=== PATIENT | female | born 1960 | race Caucasian/White ===

== ENCOUNTER 2016-12-14 21:21 | Inpatient (IN) | payer OTHER ==
[~2016-12-14] VITALS: Ht 157.5 cm; Wt 81.5 kg
--- NOTE | ~2016-12-14 | EKG ---
PATIENT: HALEIGH US UNIT #: [id number] Ventricular Rate: 86 BPM Atrial Rate: 86 BPM P-R Interval: 132 ms QRS Duration: 80 ms Q-T Interval: 386 ms QTC Calculation(Bezet): 461 ms P [place]: 39 degrees Calculated R [place]: 46 degrees Calculated T [place]: 30 degrees Diagnosis Line: Normal sinus rhythm Diagnosis Line: Low voltage QRS Diagnosis Line: Prolonged QT Diagnosis Line: Abnormal ECG Diagnosis Line: No previous ECGs available Diagnosis Line: Confirmed by THIEN VALENCIA MD ([id number]) on Diagnosis Line: 12/20/2016 10:54:02 PM INTERPRETING MD: SAROJ
--- NOTE | ~2016-12-14 | US77 ---
[facility] A Service of [facility] & [facility] RADIOLOGY TEXT RESULTS PATIENT: HALEIGH US LOCATION: [place] [address] : [birth year] UNIT #: [id number] AGE: [address]: Mikala Gee MD SEX: F ORDER DR: [id number] [facility] [address] [place], [place] [address] [id number] I MR#: [id number] Acc #: [id number] NAME: HALEIGH US : 1960 SEX: F STUDY DATE/TIME: 12/15/2016 16:34 UNIT: [facility] ROOM: [facility] STUDY DESCRIPTION: US Kidney Bilateral Complete Attending Physician: Mikala Gee M.D. Ordering Physician: Mikala Gee M.D. MEDICAL IMAGING REPORT This report is preliminary unless electronic signature is present EXAM Renal ultrasound INDICATIONS Acute renal insufficiency. eGFR 16.3. COMPARISON CT of the pelvis 12/14/2016. FINDINGS The right kidney measures 11.2 cm. The left kidney measures 12.3 cm. There is mild renal cortical thinning. No hydronephrosis. The bladder is decompressed and poorly evaluated. IMPRESSION Mild renal cortical atrophy. No hydronephrosis. Dictated by... Jan Rowell M.D. THIS IS AN ELECTRONICALLY VERIFIED REPORT Jan Rowell M.D. at 12/16/2016 8:47 AM RPC/pepe TD: 12/15/2016 21:41 JOB #: [id number] MEDICAL IMAGING REPORT Page 1 of 1 COPY
--- NOTE | ~2016-12-14 | CT4 ---
[facility] A Service of [facility] & [facility] RADIOLOGY TEXT RESULTS PATIENT: HALEIGH US LOCATION: [facility] [id number] : [birth year] UNIT #: [id number] AGE: [address]: Mikala Gee MD SEX: F ORDER DR: [id number] [place] [id number] I MR#: [id number] Acc #: [id number] NAME: HALEIGH US : 1960 SEX: F STUDY DATE/TIME: 12/14/2016 23:29 UNIT: SEDOF ROOM: [id number] STUDY DESCRIPTION: CT Abd and Pelv Wo Cont Attending Physician: Hawa Malcolm M.D. Ordering Physician: Anibal Bey M.D. Primary Care Physician: Primary Care Physician No MEDICAL IMAGING REPORT This report is preliminary unless electronic signature is present. EXAM CT abdomen and pelvis 12/14 23:29 INDICATION Patient unable to urinate with bloating of the abdomen and dizziness since last night. There is associated abdominal pain. TECHNIQUE Axial noncontrast images were obtained through the abdomen and pelvis. Multiplanar reformats were obtained. No comparison. This CT examination was performed with one or more of the following radiation dose reduction techniques: automatic exposure control, adjustment of mA and/or kV according to patient size, and iterative reconstruction. FINDINGS ABDOMEN: There is some mild atelectasis in the lung bases. Gallbladder is unremarkable. No renal or ureteral stones are seen. There is no hydronephrosis. The unenhanced solid organs are normal. No free fluid is seen. The stomach is distended with fluid and gas. Unopacified GI tract is otherwise normal. PELVIS: The appendix is normal. The remainder of the unopacified GI tract is normal as well. Uterus is surgically absent. No free fluid. There are no lower ureteral stones. Urinary bladder is completely decompressed by a Bedoya catheter. There is degenerative disease in the lumbar spine, most pronounced at L4-5. IMPRESSION 1. No renal or ureteral stones. No hydronephrosis. Urinary bladder completely decompressed by a Bedoya. 2. The stomach is distended with fluid and gas. The rest of the GI tract, including the appendix, is normal. [facility]. [facility] A Service of [facility] RADIOLOGY TEXT RESULTS PATIENT: HALEIGH US LOCATION: [facility] [id number] : [birth year] UNIT #: [id number] AGE: [address]: Mikala Gee MD SEX: F ORDER DR: 3. Hysterectomy. Dictated by... Berny Fry Jr., M.D. THIS IS AN ELECTRONICALLY VERIFIED REPORT Berny Fry Jr., M.D. at 12/16/2016 4:21 AM ANITA/burak TD: 12/15/2016 06:19 JOB #: [id number] MEDICAL IMAGING REPORT Page 1 of 1
--- NOTE | ~2016-12-14 | HP ---
Unit #: [id number] #: [id number] Patient: HALEIGH US [id number] [address] [place], [place] [address] [id number] I MR#: [id number] NAME: HALEIGH US ROOM: [facility] Age: 56 Sex: F Admission Date: 12/15/2016 : 1960 Attending Physician: Hawa Malcolm M.D. Primary Care Physician: No Primary Care Physician HISTORY AND PHYSICAL CHIEF COMPLAINT Hypotension with acute kidney injury. HISTORY This 56-year-old female with hypertension was transferred from [facility] emergency department for hypotension and acute kidney injury. Patient states that she has been experiencing some left flank discomfort for about six months. Recently began to experience decreased urinary output with difficulty voiding. Has not voided for the past 1 1/2 days. Yesterday, also experienced lightheadedness, abdominal bloating. Did experience diarrhea several days ago and recently poor p.o. intake. She presented to [facility] emergency department late last evening with a low-grade temperature of 99.4, initial blood pressure of 75/52 with a heart rate of 97. Patient was cultured. A Bedoya catheter was placed and she had 200 mL of urine in her bladder. She was bolused with 2 liters of saline with improvement of her blood pressure. However, en route to this facility, she became hypotensive again and, therefore, was sent to the ICU. She currently is receiving further IV fluids with improvement of her blood pressure. She denies infectious symptoms with the above. Does take Zestoretic 10/12.5 mg daily. Denies recent use of nonsteroidal anti-inflammatory drugs. No previous history of kidney disease. Although she denies illicit drug use, urine tox screen is positive for amphetamines and opiates. She is prescribed Xanax. On CT scan, she had a somewhat distended stomach with fluid and gas. The rest of her CT scan including her kidneys looked to be normal. Her urinalysis is negative and her chest x-ray shows mild cardiomegaly only. PAST MEDICAL HISTORY 1. Hypertension. 2. Anxiety and depression. 3. Admission 05/2014 from community-acquired pneumonia. She was seen in consultation by Dr. Papi Rodriguez. 4. Left total knee replacement. 5. Back surgery. 6. Ear surgery. 7. BTL. 8. Total abdominal hysterectomy. ALLERGIES To Nubain and most nonsteroidal anti-inflammatory drugs including aspirin. HOME MEDICATIONS 1. Xanax 1 mg q.i.d. Unit #: [id number] #: [id number] Patient: HALEIGH US 2. Zestoretic 10/12.5 mg daily. 3. PROzac 20 mg daily. 4. Zyrtec 5 mg daily. 5. LaMICtal recently added 100 mg q.a.m. FAMILY HISTORY Diabetes mellitus, hypertension, leukemia, and melanoma. SOCIAL HISTORY The patient lives with her boyfriend and his father. She smokes about one pack per week of tobacco, seldom drinks alcohol. Denies illicit drug use. REVIEW OF SYSTEMS Notable for difficulty voiding with decreased urinary output, abdominal bloating, left flank discomfort, anxiety, depression, hypertension, and abovementioned surgeries. All other systems were reviewed and are otherwise negative. PHYSICAL EXAMINATION GENERAL APPEARANCE: Pleasant, moderately obese, 56-year-old female currently in no acute distress. VITAL SIGNS: Temperature 99.4; pulse 97; respirations 20; initial blood pressure 75/52, which currently is improved after fluid boluses to a systolic blood pressure of 102; and O2 saturation is 98% on room air. HEENT: Eyes: PERRLA. Extraocular muscles are intact. Pharynx is benign. NECK: Supple without adenopathy or thyromegaly. CHEST: Clear. BACK: With some left CVA percussion tenderness. CARDIAC: Normal S1 and S2 without murmur. ABDOMEN: Bowels sounds are present. No hepatosplenomegaly, tenderness, or masses. EXTREMITIES: Without C, C, or E. Pedal pulses are present. No ulcers on the feet. No splinter hemorrhages noted over the fingernail beds. NEUROLOGIC: Patient is awake, alert, and oriented. Her cranial nerves are intact. She has equal strength throughout. DIAGNOSTIC STUDIES ADMISSION LABS: Hematocrit 36.8 and normal white count and platelet count. SMA-12: Glucose 117; BUN 35 and creatinine 4.2, up from a BUN of 17 and creatinine of 0.7 four years ago; sodium 130; chloride is 89; and protein is 8.4. CPK is 210. Normal lactic acid. Urine tox screen positive for benzos, which are prescribed; and also positive for amphetamines and opiates, which are not prescribed. Urinalysis completely normal. Specific gravity 1.020. IMAGING: Chest x-ray: Mild cardiomegaly. CT scan of the abdomen and pelvis shows a distended stomach with fluid and gas. The rest of the CT scan including the kidneys looks normal. CARDIOVASCULAR: EKG: Normal sinus rhythm, rate 86. Normal appearing. ASSESSMENT 1. Hypotension in patient with history of hypertension. I am uncertain of the etiology at this point. Blood cultures were sent. Patient may have an element of dehydration, but obviously need to be concerned about her recent drug use or even possible sepsis although Unit #: [id number] #: [id number] Patient: HALEIGH US no infectious symptoms are present. 2. Acute kidney injury with benign appearing sediment, possibly related to dehydration in combination with Zestoretic. Patient may have an element of acute tubular necrosis although she does have a benign sediment. Her kidneys on CT scan appear to be normal. 3. Polysubstance abuse, which patient denies. 4. Anxiety and depression. 5. History of hypertension. PLANS 1. One dose of Rocephin and one dose of vanc. pending blood cultures. I will also ask for a procalcitonin level this morning. 2. IV fluids. If needed, will add pressors. Blood pressure has responded to boluses of saline. 3. Repeat labs this morning. If kidney function is not improving, will ask nephrology to see. 4. DVT and gastritis prophylaxes. 5. Discontinue Zestoretic. 6. Consultants based on above. 7. Recheck CPK this morning. 8. Check HIV. Dictated by Hawa Malcolm M.D. AML/pc TD: 12/15/2016 06:44 JOB #: [id number] CC: Steve Lundberg M.D. HISTORY AND PHYSICAL Page 1 of 1 X Hawa Malcolm MD HISTORY AND PHYSICAL
--- NOTE | ~2016-12-14 | DS ---
Unit #: [id number] #: [id number] Patient: HALEIGH US [id number] [address] [place], [place] [address] [id number] MR#: [id number] NAME: HALEIGH US ROOM: 55 Age: 56 Sex: F Admission Date: 12/15/2016 : 1960 Discharge Date: 12/16/2016 Attending Physician: Mikala Gee M.D. Primary Care Physician: No Primary Care Physician DISCHARGE SUMMARY REASON FOR ADMISSION Hypotension/acute kidney injury. HISTORY OF PRESENT ILLNESS/HOSPITAL COURSE Please refer to H and P for complete details. The patient's blood pressure medications were placed on hold while she was here. Her blood pressure otherwise remained stable. Her systolic ranged in the low 100s. She was not placed on any medication at the time of discharge. Initial urine drug screen was positive for both opiates as well as benzodiazepines. Benzodiazepines are currently prescribed by her psychiatrist. However, after further review and discussion with patient, she states that she has been off and on taking a friend's Percocet to which were not prescribed. She did have altered mental status, likely secondary to advanced and significant opioid abuse. Initial creatinine was noted to be 4.2 with unclear baseline. She was placed on copious IV fluids and she was placed on telemetry floor. This morning, her BMP now shows a creatinine of 1.4, estimated GFR of 64. We did consult Dr. Castellanos and associates from Nephrology. Ultrasound of bilateral kidneys were done which did show some mild renal cortical atrophy, otherwise unremarkable. CT abdomen and pelvis was done without contrast which was essentially negative. No acute process was noted. HIV screening was done and that too was negative. At this point in time, the patient is clinically stable for discharge. She has been extensively counseled on the dangers of opioid abuse. She states that she will not be taking any further opioids from friends at time of discharge. She also feels may reservations in continuing taking her Lamictal as she has felt that this has not helped her. It has also caused her to be worse. I encouraged her to follow with her psychiatrist, Dr. Kennedy, to review her psychiatric medications at time of discharge. I will not be continuing her Lamictal but, in the future, these medications may be reviewed by Dr. Kennedy. At time of discharge, her Xanax will be continued as previously prescribed as well as her Prozac. Of the medications will be placed on hold and/or discontinued. FINAL DISCHARGE DIAGNOSES 1. Altered mental status, likely secondary to opioid abuse. 2. Acute hypotension on admission, likely secondary to dehydration as well as blood pressure medications. Unit #: [id number] #: [id number] Patient: HALEIGH US 3. Prior history of hypertension, currently no need. 4. Anxiety/depression. FINAL DISCHARGE MEDICATIONS 1. Prozac 20 mg p.o. daily. 2. Xanax 1 mg p.o. q.6 p.r.n. DISCHARGE CONDITION Stable. DISCHARGE DISPOSITION Home. Follow BMP in 7-10 days with PCP. Dictated by... Mikala Gee M.D. BENITO/kelli TD: 12/17/2016 11:12 JOB #: [id number] DISCHARGE SUMMARY Page 1 of 1 X Mikala Gee MD X DISCHARGE SUMMARY
--- NOTE | ~2016-12-14 | CO ---
Unit #: [id number] #: [id number] Patient: HALEIGH US [id number] [address] [address] [id number] I MR#: [id number] NAME: HALEIGH US ROOM: 55 Age: 56 Sex: F Admission Date: 12/15/2016 : 1960 Attending Physician: Mikala Gee M.D. Primary Care Physician: No Primary Care Physician Consultation Date: 12/15/2016 CONSULTATION REPORT REASON FOR CONSULTATION Elevated creatinine level. The patient is a 56-year-old white female with known history of hypertension, on Zestoretic at home, came in transferred from [facility] with hypotension and reported diarrhea for several days. Blood pressure noted to be 70. The patient's home medication included Zestoretic 10/12.5 mg. The patient's creatinine level on admitted noted to be 4.2. The patient had a creatinine of 2.7 in 2012. No reported vomiting, no chills or fevers, no dysuria, no hematuria. No recent IV contrast. The patient has not needed dialysis in the past and no previous renal evaluation. PAST MEDICAL HISTORY Significant for: 1. Hypertension. 2. Depression. 3. Previous history of pneumonia. PAST SURGICAL HISTORY Significant for: 1. Left total knee replacement. 2. Back surgery. 3. Ear surgery. 4. Total abdominal hysterectomy. ALLERGIES NSAIDs. MEDICATIONS Home medications include: 1. Xanax four times daily. 2. Zestoretic daily 10/12.5 mg. 3. Prozac 20 mg daily. 4. Zyrtec 5 mg daily. 5. Lamictal. FAMILY HISTORY Significant for hypertension, diabetes. No history of end stage renal disease. SOCIAL HISTORY Patient lives at home with her boyfriend. Smokes a pack a day per week. Does not drink. Unit #: [id number] #: [id number] Patient: HALEIGH US REVIEW OF SYSTEMS GI: As above. : No hematuria, no dysuria. CVS: No chest pain. RESPIRATORY: No cough or expectoration. PHYSICAL EXAMINATION GENERAL: The patient is now awake, alert. VITAL SIGNS: Temperature is 99 degrees, pulse is 81 per minute, the blood pressure 108/64. The saturation is 96%. HEENT: Head is atraumatic. Extraocular movements are intact. Sclerae are anicteric. NECK: Supple. There is no elevation of the JVD. CHEST: Clear. Air entry is equal bilaterally. Breathing is vesicular in nature. HEART: S1, S2 audible. There is no S3, no S4. ABDOMEN: Soft. There is no organomegaly. No guarding, no rigidity, no rebound tenderness. There is no edema. TAX ASSESSOR EXAM: Intact. Motor system is intact. Cerebellar system is intact. DIAGNOSTIC STUDIES LABORATORY: Sodium is 138, potassium 4.5, chloride 110, CO2 21, BUN is 12, creatinine is 1, glucose is 81, calcium is 9.1. WBC 6.3, H and H 11 and 32.9 with a platelet count of 227. IMAGING: Renal ultrasound is unremarkable. Proteinuria is less than 500 mg. IMPRESSION 1. BRET, likely hemodynamic related. Increase in creatinine with volume depletion and prerenal azotemia complicated by Zestoretic. Continue IV hydration. I expect her renal function to improve. 2. Hypertension. 3. Diarrhea. 4. Proteinuria. 5. History of depression. Dictated by... Cresencio Francois M.D. RA/kelli TD: 12/17/2016 07:10 JOB #: [id number] Unit #: [id number] #: [id number] Patient: HALEIGH US CONSULTATION REPORT Page 1 of 1 X Cresencio Francois MD CONSULTATION REPORT
--- NOTE | ~2016-12-14 | HP ---
Unit #: [id number] #: [id number] Patient: HALEIGH US [id number] [address] [address] [id number] I MR#: [id number] NAME: HALEIGH US ROOM: [facility] Age: 56 Sex: F Admission Date: 12/15/2016 : 1960 Attending Physician: Hawa Malcolm M.D. Primary Care Physician: No Primary Care Physician HISTORY AND PHYSICAL ADDENDUM Critical care time spent in evaluation of this patient was 35 minutes. Dictated by Good Avelar/pc TD: 12/15/2016 07:27 JOB #: [id number] HISTORY AND PHYSICAL Page 1 of 1 X Hawa Malcolm MD HISTORY AND PHYSICAL
--- NOTE | ~2016-12-14 | CR72 ---
[facility]. [facility] A Service of [facility] RADIOLOGY TEXT RESULTS PATIENT: HALEIGH US LOCATION: [facility] 553- : [birth year] UNIT #: [id number] AGE: [address]: Mikala Gee MD SEX: F ORDER DR: [id number] [place] [id number] I MR#: [id number] Acc #: [id number] NAME: HALEIGH US : 1960 SEX: F STUDY DATE/TIME: 12/14/2016 23:19 UNIT: SEDOF ROOM: [facility] STUDY DESCRIPTION: CR Chest Single View Portable Attending Physician: Hawa Malcolm M.D. Ordering Physician: Anibal Bey M.D. Primary Care Physician: Primary Care Physician No MEDICAL IMAGING REPORT This report is preliminary unless electronic signature is present. EXAM Portable chest 12/14 23:19 INDICATION Dizziness since last night with some shortness of air and abdominal pain. FINDINGS AP portable chest was obtained. No comparison. Heart size does appear mildly enlarged but this may be due to low volume inspiration and portable technique. Lungs are clear. No pneumothorax. Dictated by... Berny Fry Jr., M.D. THIS IS AN ELECTRONICALLY VERIFIED REPORT Berny Fry Jr., M.D. at 12/16/2016 4:21 AM ANITA/burak TD: 12/15/2016 06:17 JOB #: [id number] MEDICAL IMAGING REPORT Page 1 of 1
[~2016-12-14 21:21] MED LIST: ALPRAZOLAM; BACTRIM DS TABL1 TA1 PO; BACTRIM DS TABL1 TA2 PO; CELEXA PO; CLARINEX5 MG PO; CYMBALTA PO; FLAGYL PO; LISINOPRIL-HCTZ1 T19 PO; NAPROSYN-EC500 M1 PO; NEURONTIN300 MG PO; PHENERGAN25 M1 PO; PROZAC PO; ROBAXIN 750750 MG PO; SULFACETAMIDE OP; TYLENOL #3 PO
[2016-12-14] MEDS ORDERED: MOOD STABILIZER (21:45)
[2016-12-14 22:26] LABS: BASOPHIL# 0.1 X10e3 (0-0.3); BASOPHIL% 0.8 % (0-2.5); DIFF IND NO; EOSINOPHIL# 0.3 X10e3 (0-0.7); EOSINOPHIL% 3.3 % (0.0-7.0); HEMATOCRIT 36.8 % (35.0-45.0); HEMOGLOBIN 12.5 gm/dL (12.0-16.0); LYMPHOCYTE# 3.7 X10e3 (1.0-3.5); LYMPHOCYTE% 37.8 % (17.0-45.0); MEAN CELL VOLUME 89.5 FL (83-96); MEAN CORPUSCULAR HEMOGLOBIN 30.4 PG (28-34); MEAN CORPUSCULAR HGB CONC 33.9 g/dL (30-36); MONOCYTE# 0.7 X10e3 (0-1.0); MONOCYTE% 7.1 % (3.0-12.0); PLATELET COUNT 320 X10e3 (140-420); RED BLOOD COUNT 4.11 X10e (3.90-5.30); WHITE BLOOD COUNT 9.8 X10e3 (4.0-10.5)
[2016-12-14 22:43] LABS: URINE SOURCE CATH
[2016-12-14 22:46] LABS: URINE APPEARANCE HAZY; URINE BILIRUBIN NEG (NEG); URINE BLOOD NEG (NEG); URINE COLOR YELLOW; URINE GLUCOSE NEG (NORM); URINE KETONE NEG (NEG); URINE LEUKOCYTE ESTERASE NEG (NEG); URINE NITRATE NEG (NEG); URINE PROTEIN NEG (NEG); URINE UROBILINOGEN 0.2 MG/DL (NORM)
[2016-12-14 22:50] LABS: MICRO INDICATED? NO
[2016-12-14 22:51] LABS: ALBUMIN SERUM 4.6 g/dL (3.5-5.0); ALKALINE PHOSPHATASE 63 U/L (32-92); ALT (SGPT) 16 U/L (10-40); AST (SGOT) 18 U/L (10-42); BILIRUBIN, DIRECT <0.1 mg/dL (0.0-0.2); BILIRUBIN,INDIRECT 0.2 mg/dL (0.0-0.9); BILIRUBIN,TOTAL 0.3 mg/dL (0.2-2.0); BLOOD UREA NITROGEN 35 mg/dL (9-23); BUN/CREATININE RATIO 8.33; CALCIUM SERUM 9.4 mg/dL (8.4-10.2); CARBON DIOXIDE 28 mmol/L (22-31); CHLORIDE 89 mmol/L (100-111); CREATININE SERUM 4.2 mg/dL (0.6-1.4); GLOM FILT RATE Estimated 11.3 mL/min (>60); GLUCOSE FASTING 117 mg/dL (70-110); POTASSIUM 3.8 mmol/L (3.5-5.1); PROTEIN TOTAL SERUM 8.4 g/dL (6.0-8.3); SODIUM 130 mmol/L (135-145)
[2016-12-14 23:03] LABS: AMPHETAMINE POS (NEG); BARBITURATES NEG (NEG); BENZODIAZEPINES POS (NEG); COCAINE NEG (NEG); MARIJUANA NEG (NEG); OPIATES POS (NEG); TRICYCLIC ANTIDEPRESSANTS NEG (NEG); U METHADONE NEG (NEG)
[2016-12-15] MEDS ORDERED: CETIRIZINE HCL5 MG PO (03:15)
[2016-12-15] MEDS ORDERED: XANAX1 MG PO (03:15)
[2016-12-15] MEDS ORDERED: LAMICTAL100 MG PO (03:16)
[2016-12-15] MEDS ORDERED: FLUOXETINE HCL20 M1 PO (03:16)
[2016-12-15] MEDS ORDERED: ZESTORETIC 10-1 EAC1 PO (03:17)
[2016-12-15 05:02] LABS: BASOPHIL# 0.1 X10e3 (0-0.3); EOSINOPHIL# 0.3 X10e3 (0-0.7); EOSINOPHIL% 2.7 % (0.0-7.0); HEMATOCRIT 30.2 % (35.0-45.0); LYMPHOCYTE# 3.4 X10e3 (1.0-3.5); MEAN CELL VOLUME 90.2 FL (83-96); MEAN CORPUSCULAR HEMOGLOBIN 30.3 PG (28-34); MEAN CORPUSCULAR HGB CONC 33.5 g/dL (30-36); MEAN PLATELET VOLUME 7.8 FL (6.5-11.5); MONOCYTE# 0.8 X10e3 (0-1.0); MONOCYTE% 7.7 % (3.0-12.0); NEUTROPHIL# 5.7 X10e3 (1.5-7.1); NEUTROPHIL% 55.6 % (40-75); PLATELET COUNT 260 X10e3 (140-420); RED BLOOD COUNT 3.35 X10e (3.90-5.30); RED CELL DISTRIBUTION WIDTH 13.3 % (11.0-15.5); WHITE BLOOD COUNT 10.2 X10e3 (4.0-10.5)
[2016-12-15 05:05] LABS: HEMOGLOBIN 10.1 gm/dL (12.0-16.0)
[2016-12-15 05:07] LABS: DIFF IND NO
[2016-12-15 05:35] LABS: BLOOD UREA NITROGEN 28 mg/dL (9-23); BUN/CREATININE RATIO 9.03; CALCIUM SERUM 7.9 mg/dL (8.4-10.2); CARBON DIOXIDE 23 mmol/L (22-31); CHLORIDE 102 mmol/L (100-111); CK TOTAL 179 IU/L (26-140); CREATININE SERUM 3.1 mg/dL (0.6-1.4); GLOM FILT RATE Estimated 16.3 mL/min (>60); GLUCOSE FASTING 117 mg/dL (70-110); POTASSIUM 3.9 mmol/L (3.5-5.1); SODIUM 133 mmol/L (135-145)
[2016-12-15 06:10] LABS: PROCALCITONIN <0.05 NG/ML
[2016-12-15 06:22] LABS: %MB 1.6 % (0.0-4.0); MB 2.9 ng/ml
[2016-12-15 13:37] LABS: POC - CKMB 1.9 ng/mL (0.0-7.9); POC - MYOGLOBIN >500.0 ng/mL (0.0-169.0); POC - TROPONIN <0.05 ng/mL (<=0.05)
[2016-12-15 16:17] LABS: CREATININE,RANDOM URINE 32 mg/dL; SODIUM URINE RANDOM 94 mmol/L; TOTAL PROTEIN,RANDOM URINE <10 mg/dl (<10)
[2016-12-16 05:28] LABS: HEMATOCRIT 32.9 % (35.0-45.0); MEAN CELL VOLUME 90.3 FL (83-96); MEAN CORPUSCULAR HEMOGLOBIN 30.2 PG (28-34); MEAN CORPUSCULAR HGB CONC 33.4 g/dL (30-36); MEAN PLATELET VOLUME 8.1 FL (6.5-11.5); RED BLOOD COUNT 3.64 X10e (3.90-5.30); RED CELL DISTRIBUTION WIDTH 13.3 % (11.0-15.5); WHITE BLOOD COUNT 6.3 X10e3 (4.0-10.5)
[2016-12-16 07:43] LABS: CALCIUM SERUM 9.1 mg/dL (8.4-10.2); GLOM FILT RATE Estimated 63.8 mL/min (>60); POTASSIUM 4.5 mmol/L (3.5-5.1)
== END 2016-12-16 12:53 | disposition home or self-care (01) | DRG 684 ==
LOC: SED 21:21 → CEDOF 12-15 00:22 → SEDOF 12-15 00:30 → CEDOF 12-15 00:30 → C3A PCU 12-15 02:29 → SEDOF 12-15 02:29 → CICCU3 12-15 02:37 → C3A PCU 12-15 02:37 → CICCU3 12-15 02:37 → C3A PCU 12-15 03:15 → CICCU3 12-15 03:15 → CEDOF 12-15 03:15 → SEDOF 12-15 03:15 → CICCU3 12-15 07:26 → C5B 12-15 07:26
PROVIDERS: Emergency Medicine; Family Medicine; Internal Medicine; Internal Medicine Nephrology
DX: N17.0 Acute kidney failure with tubular necrosis (principal); I95.9 Hypotension, unspecified; F11.10 Opioid abuse, uncomplicated; E86.0 Dehydration; I10 Essential (primary) hypertension; F41.9 Anxiety disorder, unspecified; F32.9 Major depressive disorder, single episode, unspecified; Z96.652 Presence of left artificial knee joint; Z90.710 Acquired absence of both cervix and uterus; F17.200 Nicotine dependence, unspecified, uncomplicated; R19.7 Diarrhea, unspecified; R80.9 Proteinuria, unspecified; Z83.3 Family history of diabetes mellitus; Z82.49 Family history of ischemic heart disease and other diseases of the circulatory system; Z80.6 Family history of leukemia; Z80.8 Family history of malignant neoplasm of other organs or systems
CPT/HCPCS: 36415; 51702; 71010; 74176; 76770; 80048; 80076; 80307; 81003; 82308; 82550; 82553; 82570; 82947; 83605; 83690; 83874; 84156; 84300; 84443; 84484; 85025; 85027; 87040; 87806; 89190; 93005; 96360; 96361; 99291; J0696; J1644; J3370